=== PATIENT | female | born 1970 | race Caucasian/White ===

== ENCOUNTER 2020-09-17 22:11 | Emergency (ER) | payer OTHER ==
[~2020-09-17] VITALS: Ht 177.8 cm; Wt 59.1 kg
[~2020-09-17 22:11] MED LIST: CARAFATE 1GM1 G PO; IMITREX 25MG TA25 MG PO; LEXAPRO20 M1 PO; OMEPRAZOLE40 MG PO; ZANAFLEX4 M1 PO; ZOFRAN4 M2 PO
[2020-09-17] MEDS ORDERED: ACETAMINOPHEN-O1 TAB PO (22:23)
[2020-09-17] MEDS ORDERED: AMBIEN10 MG PO (22:24)
[2020-09-17] MEDS ORDERED: CATAPRES0.1 M1 PO (22:25)
[2020-09-18 00:02] VITALS: BP 159/81
== END 2020-09-18 00:03 | disposition home or self-care (01) ==
LOC: ED 22:11
DX: K29.70 Gastritis, unspecified, without bleeding (principal); G89.29 Other chronic pain; K90.9 Intestinal malabsorption, unspecified; K21.9 Gastro-esophageal reflux disease without esophagitis; F32.9 Major depressive disorder, single episode, unspecified; Z87.442 Personal history of urinary calculi; Z90.710 Acquired absence of both cervix and uterus; Z90.49 Acquired absence of other specified parts of digestive tract; Z88.1 Allergy status to other antibiotic agents
CPT/HCPCS: J2270; J2550

== ENCOUNTER 2021-04-26 20:27 | Emergency (ER) | payer OTHER ==
[~2021-04-26 20:27] MED LIST changes: +ACETAMINOPHEN-O1 TAB PO; +AMBIEN10 MG PO; +CATAPRES0.1 M1 PO
[2021-04-26] MEDS ORDERED: DESYREL 100MG100 MG PO (21:09)
[2021-04-27 00:30] VITALS: BP 105/68
== END 2021-04-26 23:38 | disposition home or self-care (01) ==
LOC: ED 20:27
DX: M25.511 Pain in right shoulder (principal); M25.521 Pain in right elbow; W18.2XXA Fall in (into) shower or empty bathtub, initial encounter; Y93.E1 Activity, personal bathing and showering; Y92.009 Unspecified place in unspecified non-institutional (private) residence as the place of occurrence of the external cause

== ENCOUNTER 2023-12-14 08:55 | Observation (INO) | payer BC ==
[~2023-12-14] VITALS: Ht 175.3 cm; Wt 72.7 kg
[~2023-12-14 08:55] MED LIST changes: +CATAPRES-TTS 20.2 M1 TD; -CATAPRES0.1 M1 PO; +DESYREL 100MG100 MG PO
[2023-12-14 18:00] VITALS: BP 133/82
[2023-12-14 18:15] VITALS: BP 133/82
[2023-12-14] MEDS ORDERED: DULOXETINE60 MG PO (18:20)
[2023-12-14 21:39] VITALS: BP 104/45
[2023-12-14] MEDS ORDERED: CLONIDINE HYDR0.1 MG PO (22:35)
[2023-12-14 22:37] VITALS: BP 114/76
[2023-12-15 02:42] VITALS: BP 102/52
[2023-12-15 05:26] VITALS: BP 105/71
[2023-12-15] MEDS ORDERED: OXYCODONE HCL10 M1 PO (09:38)
[2023-12-15 10:19] VITALS: BP 128/78
== END 2023-12-15 10:35 | disposition home or self-care (01) ==
LOC: ED 08:55 → MED/SURG 09:10
PROVIDERS: ADMIT Physician Assistant
DX: T22.212A Burn of second degree of left forearm, initial encounter (principal); T23.272A Burn of second degree of left wrist, initial encounter; X12.XXXA Contact with other hot fluids, initial encounter; Y93.89 Activity, other specified; F17.200 Nicotine dependence, unspecified, uncomplicated
CPT/HCPCS: G0378; J1170; J3010

== ENCOUNTER 2024-06-14 10:15 | Emergency (ER) | payer BC ==
[~2024-06-14] VITALS: Ht 175.3 cm; Wt 69.0 kg
[~2024-06-14 10:15] MED LIST changes: +CLONIDINE HYDR0.1 MG PO; +DULOXETINE60 MG PO; +OXYCODONE HCL10 M1 PO
[2024-06-14] MEDS ORDERED: diphenhydrAMINE 50 MG/ML 1 ML VIAL IV\\IM ONE (10:45)
[2024-06-14] MEDS ORDERED: Dextrose/Magnesium Sulfate 100 ML IV ONE (10:45)
[2024-06-14] MEDS ORDERED: Ketorolac 30 MG/ML VIAL IV ONE (10:45)
[2024-06-14 12:15] VITALS: BP 143/81
== END 2024-06-14 12:18 | disposition home or self-care (01) ==
LOC: ED 10:15
DX: G43.509 Persistent migraine aura without cerebral infarction, not intractable, without status migrainosus (principal)
CPT/HCPCS: J0780; J1200; J1885; J3475

== ENCOUNTER 2024-09-15 14:28 | Emergency (ER) | payer BC ==
[~2024-09-15] VITALS: Ht 175.3 cm; Wt 65.9 kg
[2024-09-15] MEDS ORDERED: Ketorolac 30 MG/ML VIAL IM ONE (15:15)
[2024-09-15] MEDS ORDERED: NORCO 325 MG-51 TA1 PO (16:25)
[2024-09-15 16:47] VITALS: BP 149/78
== END 2024-09-15 16:45 | disposition home or self-care (01) ==
LOC: ED 14:28
DX: S97.81XA Crushing injury of right foot, initial encounter (principal); W20.8XXA Other cause of strike by thrown, projected or falling object, initial encounter
CPT/HCPCS: J1885

== ENCOUNTER 2024-12-08 14:10 | Emergency (ER) | payer BC ==
[~2024-12-08] VITALS: Ht 177.8 cm; Wt 68.2 kg
[~2024-12-08 14:10] MED LIST changes: +NORCO 325 MG-51 TA1 PO; +TRELEGY ELLIPT1 EACH IH
[2024-12-08 15:36] VITALS: BP 147/65
== END 2024-12-08 15:37 | disposition home or self-care (01) ==
LOC: ED 14:10
DX: T23.101A Burn of first degree of right hand, unspecified site, initial encounter (principal); X08.8XXA Exposure to other specified smoke, fire and flames, initial encounter; Y93.G3 Activity, cooking and baking